=== PATIENT | male | born 1985 | race Two or more races ===

== ENCOUNTER 2018-01-09 01:55 | Emergency (ER) | payer OTHER ==
[~2018-01-09] VITALS: Ht 172.7 cm; Wt 85.0 kg
[2018-01-09] MEDS ORDERED: ONDANSETRON ODT 4 MG ONE (02:25)
[2018-01-09] MEDS ORDERED: IBUPROFEN 200 MG TABLET ONE (02:26)
[2018-01-09 02:28] VITALS: BP 130/75
[2018-01-09] MEDS ORDERED: IBUPROFEN 200 MG TABLET PO ONE (02:30)
[2018-01-09] MEDS ORDERED: ONDANSETRON ODT 4 MG PO ONE (02:30)
== END 2018-01-09 03:11 | disposition home or self-care (01) ==
LOC: ED 03:01
DX: G44.211 Episodic tension-type headache, intractable (principal); R19.7 Diarrhea, unspecified
CPT/HCPCS: 70450; 99284; Q0162